=== PATIENT | female | born 1990 | race Caucasian/White ===

== ENCOUNTER → 2019-06-13 | Outpatient (CLI) | payer OTHER | LOC: MC.RAD 10:00 | DX: Z12.31 Encounter for screening mammogram for malignant neoplasm of breast (principal); Z80.3 Family history of malignant neoplasm of breast ==

== ENCOUNTER → 2022-02-04 | Outpatient (CLI) | payer OTHER | LOC: MC.RAD 15:37 | DX: Z12.31 Encounter for screening mammogram for malignant neoplasm of breast (principal) ==

== ENCOUNTER → 2023-08-12 | Outpatient (CLI) | payer OTHER | LOC: MC.RAD 14:00 | DX: R59.9 Enlarged lymph nodes, unspecified (principal) ==